=== PATIENT | female | born 1945 | race Caucasian/White ===

== ENCOUNTER 2018-11-10 15:31 | Emergency (ER) | payer MEDICARE ==
[~2018-11-10] VITALS: Ht 170.2 cm; Wt 73.5 kg
[2018-11-10 15:36] VITALS: BP 154/88
--- NOTE | 2018-11-10 15:45 | NUR ---
SENT BY PMD DUE TO MIGRAINE S/P SINUS CLARIFIX TODAY. PATIENT A/OX4, NO DISTRESS NOTED. NO SOB NOTED. NEEDS ATTENDED. KEPT COMFORTABLE.
[2018-11-10] MEDS ORDERED: ONDANSETRON 4 MG TAB.RAPDIS PO ONE (16:00)
[2018-11-10] MEDS ORDERED: IV NS 0.9% 1,000 ML BAG IV ONE (16:00)
[2018-11-10] MEDS ORDERED: METOCLOPRAMIDE HCL 10 MG/2 ML VIAL IV ONE (16:00)
[2018-11-10] MEDS ORDERED: diphenhydrAMINE HCL 50 MG/ML VIAL IV ONE (16:00)
--- NOTE | 2018-11-10 16:15 | NUR ---
PATIENT NOT FOUND IN THE ROOM, ELOPED THE ER. NO MEDICATION GIVEN. DR. NORRIS MADE AWARE. Addendum: 11/10/18 at 1625 by LOKI TRIAGE NURSE SAW PATIENT LEAVING, ATTEMPTED TO STOP PATIENT FROM LEAVING REFUSED TO STAY FOR TREATMENT. REFUSED TO SIGN AMA FORM.
== END 2018-11-10 16:26 | disposition left against medical advice (07) ==
LOC: ER 15:34
DX: G43.909 Migraine, unspecified, not intractable, without status migrainosus (principal); Z88.5 Allergy status to narcotic agent; Z60.2 Problems related to living alone